=== PATIENT | female | born 1985 | race Caucasian/White ===

== ENCOUNTER → 2020-02-03 | Outpatient (CLI) | payer OTHER, MEDICAID ==
--- NOTE | 2020-02-03 17:35 | WOMENS IMAGING REPORT ---
EXAM DESCRIPTION: U/S BREAST UNILATERAL, COMPL IMAGES COMPLETED DATE/TIME: 02/03/2020 11:27 am REASON FOR STUDY: UNSPECIFIED LUMP IN THE LEFT BREAST, UNSPECIFIED QUADRANT N63.20 UNSPECIFIED LUMP IN THE LEFT BREAST, UNSPECIFIED QUAD COMPARISON: None. TECHNIQUE: Real-time and static grayscale imaging performed of the entire left breast, with more foc used ultrasound at the left breast 7 to 8 o'clock position in the area of questionable palpable abnor mality. Selected color Doppler images recorded. LIMITATIONS: None. FINDINGS: MASS: No mass identified. Normal glandular tissue. OTHER: No other significant finding. IMPRESSION: No suspicious findings detected by ultrasound. BIRAD: Negative. RECOMMENDATION: RECOMMENDED FOLLOW-UP: Follow-up as clinically indicated. COMMENT: The [employer] ([employer]) has developed recommendations for screening MRI of the breasts in certain patient populations, to be used in conjunction with mammography. Breast MRI s urveillance may be appropriate for women with more than 20% lifetime risk of developing breast cancer as determined by genetic testing, significant family history of the disease, or history of mantle r adiation for Hodgkins Disease. [employer] Practice Guidelines 2008. TECHNICAL DOCUMENTATION: JOB ID: [id number] 2010 [employer]- All Rights Reserved Reading location - IP/workstation name: [email or web address]
--- NOTE | 2020-02-03 19:06 | WOMENS IMAGING REPORT ---
EXAM DESCRIPTION: BILAT DIAGNOSTIC MAMMO W/CAD IMAGES COMPLETED DATE/TIME: 02/03/2020 10:39 am REASON FOR STUDY: UNSPECIFIED LUMP IN THE LEFT BREAST, UNSPECIFIED QUADRANT N63.20 UNSPECIFIED LUMP IN THE LEFT BREAST, UNSPECIFIED QUAD COMPARISON: Breast ultrasound same date EXAM PARAMETERS: Standard craniocaudal and mediolateral oblique views of each breast recorded using digital acquisition. Cone compression left breast lower inner quadrant in an area of questionable palpable abnormality. Left breast ultrasound was performed, dictated separately, no sonographic findings. 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 FINDINGS: RIGHT BREAST MASSES: No suspicious masses. CALCIFICATIONS: No new or suspicious calcifications. ARCHITECTURAL DISTORTION: None. ASYMMETRY: None noted. OTHER: No other significant findings. LEFT BREAST MASSES: No suspicious masses. CALCIFICATIONS: No new or suspicious calcifications. ARCHITECTURAL DISTORTION: None. ASYMMETRY: None noted. OTHER: No other significant finding. Left breast ultrasound was performed, dictated separately. No focal findings. IMPRESSION: No mammographic or sonographic evidence for malignancy left breast. No mammographic chitra dence for malignancy right breast BREAST DENSITY: b. There are scattered areas of fibroglandular density. BIRAD: ASSESSMENT: 1 Negative. RECOMMENDATION: RECOMMENDED FOLLOW UP: Please begin bilateral screening mammography at age 40. May begin yearly screening sooner than age 40, if found have an elevated lifetime risk of breast cancer o n Emmanuelle or DARIAN breast cancer risk assessments. SPECIFIC INTERVENTION/IMAGING/CONSULTATION RECOMMENDED:No additional intervention/ imaging/consultati on needed at this time. COMMUNICATION:Patient notified by letter COMMENT: The patient has been notified of the results by letter per MQSA requirements. Additional no tification policies are in place for contacting patient with suspicious or incomplete findings. Quality ID #225: The [employer] recommends an annual screening mammogram for women aged 40 years or over. This facility utilizes a reminder system to ensure that all patients receive reminder letters, and/or direct phone calls for appointments. This includes reminders for routine scr eening mammograms, diagnostic mammograms, or other Breast Imaging Interventions when appropriate. Th is patient will be placed in the appropriate reminder system. TECHNICAL DOCUMENTATION: FINDING NUMBER: (1) ASSESSMENT: (1) JOB ID: [id number] 2010 [employer]- All Rights Reserved Reading location - IP/workstation name: [email or web address]
== END ==
LOC: WI 10:14
PROVIDERS: ATTEND Nurse Practitioner Family
DX: N63.24 Unspecified lump in the left breast, lower inner quadrant (principal)
CPT/HCPCS: 76641; 77066